=== PATIENT | female | born 1980 | race Hispanic/Latino ===

== ENCOUNTER 2024-04-25 06:41 | Day surgery (SDC) | payer BC ==
[2024-04-25] VITALS (11 sets, daily range): BP systolic 96–125; BP diastolic 59–76; PULSE 59–94; RESP 15–18; TEMP 97.5–97.7
[~2024-04-25] VITALS: Ht 170.2 cm; Wt 88.9 kg
[2024-04-25] MEDS ORDERED: FAMO40TA7 PO (07:19)
[2024-04-25] MEDS ORDERED: ESOM40CA66 PO (07:19)
[2024-04-25] MEDS ORDERED: MULT-1367 PO (07:19)
[2024-04-25] MEDS: 0.9%NACL 1000ML 1,000 ML IV ONE (07:31)
[2024-04-25] MEDS ORDERED: proPOFol 10 MG/ML 20ML VIAL IV ONE (09:23)
[2024-04-25] MEDS ORDERED: LIDOCAINE PF 100MG/5ML (2%) SYRINGE 5ML ONE (09:23)
[2024-04-25] MEDS ORDERED: ondanSETRON 4MG INJ ONE (09:47)
== END 2024-04-25 10:45 | disposition home or self-care (01) ==
LOC: ENDO 06:41 → DAH 06:41 → ENDO 10:45
PROVIDERS: ATTEND Surgery
DX: R10.13 Epigastric pain (principal); K21.9 Gastro-esophageal reflux disease without esophagitis; K22.89 Other specified disease of esophagus; K44.9 Diaphragmatic hernia without obstruction or gangrene; K29.60 Other gastritis without bleeding; F41.9 Anxiety disorder, unspecified; F32.A Depression, unspecified; Z98.891 History of uterine scar from previous surgery; Z98.84 Bariatric surgery status; Z82.49 Family history of ischemic heart disease and other diseases of the circulatory system; Z83.3 Family history of diabetes mellitus; Z79.899 Other long term (current) drug therapy; Z98.890 Other specified postprocedural states
CPT/HCPCS: 81025; 43239; J7030 ×2; J2003; J2704; J2405; A4620; A4215 ×2; A4223; A4657; A7002; A4222; A4221; A4663; A4606; J3490